=== PATIENT | female | born 1995 | race Caucasian/White ===

== ENCOUNTER 2017-09-08 06:42 | Day surgery (SDC) | payer BC ==
[~2017-09-08 06:42] MED LIST: Buffered Lidocaine 0.9% SYRIN* 5 ML/SYR SYRINGE INTRADERM ONE; Famotidine IV* 10 MG/ML 2 ML (20 mg) IV ONE; Metoclopramide TAB* 10 MG PO ONE
[2017-09-08] MEDS ORDERED: Metoclopramide TAB* 10 MG ONE (07:23)
[2017-09-08] MEDS ORDERED: Famotidine IV* 10 MG/ML 2 ML (20 mg) ONE (07:23)
[2017-09-08] MEDS ORDERED: Buffered Lidocaine 0.9% SYRIN* 5 ML/SYR SYRINGE ONE (07:23)
[2017-09-08] MEDS ORDERED: Midazolam* 1 MG/ML 10 ML VIAL (10 MG) ONE (07:25)
[2017-09-08] MEDS ORDERED: Lidocaine 2% PF * 5 ML VIAL ONE (07:25)
[2017-09-08] MEDS ORDERED: fentaNYL* 50 MCG/ML 2 ML VIAL (100 MCG VIAL) ONE ×2 (07:25→08:48)
[2017-09-08] MEDS ORDERED: Propofol* 10 MG/ML 20 ML BTL IV PUSH ONE (07:25)
[2017-09-08] MEDS ORDERED: Dexamethasone IV* 4 MG/ML 1 ML (4 MG) ONE (07:25)
[2017-09-08] MEDS ORDERED: Ondansetron INJ* 2 MG/ML VIAL ONE (07:25)
[2017-09-08] MEDS ORDERED: fentaNYL* 50 MCG/ML 2 ML VIAL (100 MCG VIAL) IV PRN (08:29)
[2017-09-08] MEDS ORDERED: Ondansetron INJ* 2 MG/ML VIAL IV PRN (08:29)
[2017-09-08] MEDS ORDERED: HYDROcodone/ACET. 7.5/325 LIQ* 15 ML UDC ONE (09:46)
[2017-09-08 12:15] VITALS: BP 109/64
--- NOTE | 2017-09-08 18:00 | OP ---
DATE OF OPERATION: 09/08/17 - [facility] DATE OF : [birth year] SURGEON: Dionicio Sharif MD. ORNAMENTAL BRONZE WORKER: None. ANESTHESIA: General. PRE-OP DIAGNOSES: 1. Chronic tonsillitis. 2. Chronic adenoiditis. POST-OP DIAGNOSES: 1. Chronic tonsillitis. 2. Chronic adenoiditis. OPERATIVE PROCEDURE: Tonsillectomy and adenoidectomy. ESTIMATED BLOOD LOSS: Negligible. FINDINGS: Hypertrophied tonsils and adenoids. INDICATION: This is a 21-year-old woman who has had problems with recurrent pharyngitis for a few years and presents for elective tonsillectomy and adenoidectomy. DESCRIPTION OF PROCEDURE: On 09/08/17, she was brought to the operating room. General anesthesia was induced and an oral endotracheal tube was placed. The table was turned. The patient was draped and the time-out was performed. The McIvor mouth gag was placed into the oral cavity and used to facilitate exposure to the oropharynx. The right tonsil was grasped with a straight Allis forceps, retracted medially and dissected free of its fossa with the coblation device at a setting of 7 and 3. There was no bleeding. The left tonsil was addressed in a similar fashion. Again, the tonsil was retracted medially with straight Allis forceps and dissected free of its fossa with coblation device at a setting of 7 and 3 with no bleeding. Once the tonsils were removed, the superior and inferior pole regions were prophylactically cauterized with the bipolar setting at 5 and a red rubber catheter was then placed through the right nasal cavity, brought out of the mouth and used to facilitate exposure to the adenoid bed. There was some hypertrophy of the adenoid tissue and so the adenoid bed was vaporized using the coblation device. Some adenoid tissue was left present inferiorly in the region of [place] ridge. The patient's mouth gag was then let down for a period of a minute. It was then opened again. There was no evidence of active bleeding. An orogastric tube was passed into the stomach and stomach contents were evacuated. The patient was then returned to the care of the anesthesiologist, extubated and delivered to the PACU in stable condition. [id number]/[facility] #: [id number] [facility]
== END 2017-09-08 12:16 | disposition home or self-care (01) ==
LOC: OR 06:42
PROVIDERS: ATTEND Otolaryngology
DX: J35.03 Chronic tonsillitis and adenoiditis (principal); J45.909 Unspecified asthma, uncomplicated; F41.9 Anxiety disorder, unspecified; F41.0 Panic disorder [episodic paroxysmal anxiety]; Z88.1 Allergy status to other antibiotic agents
CPT/HCPCS: 81025; 88304; A9270-GY; J1100; J2250; J2405; J2704; J3010